=== PATIENT | male | born 1975 | race American Indian/Alaskan Native ===

== ENCOUNTER 2017-06-05 10:39 | Observation (INO) | payer BC ==
[2017-06-05 10:39] VITALS: BMI 28.3
--- NOTE | 2017-06-05 11:06 | ED PDOC ---
Arrival/HPI - History of Present Illness Time/Duration: < week Symptom Onset: Gradual Symptom Course: Worsening Context: Walking <Kimberli Valdivia - Last Filed: 06/05/17 16:47> <Arun Giang - Last Filed: 06/05/17 17:42> - General Chief Complaint: Chest Pain Time Seen by Provider: 06/05/17 10:51 - History of Present Illness Narrative History of Present Illness (Text): 06/05/17 11:02 41 year old male with past medical history of childhood asthma presents for chest pain present for 2 days. Pain began gradually, is intermittent and located on left side of his chest. Pain is worse with deep inspiration. Patient has not used anything for pain. C/o SOB worse with activity. Denies having any F/C, cough, REILLY, sick contacts, recent travels. Denies tobacco, drugs abuse and denies having any Fhx of CAD. (Kimberli Valdivia) Past Medical History - Provider Review Nursing Documentation Reviewed: Yes - Travel History Have you recently traveled outside [place] w/in the past 3 mons?: No - Infectious Disease Hx of Infectious Diseases: None - Psychiatric Hx Substance Use: No <Kimberli Valdivia - Last Filed: 06/05/17 16:47> Family/Social History - Physician Review Nursing Documentation Reviewed: Yes Family/Social History: No Known Family HX. denies: CAD/CO Smoking Status: Never Smoked Hx Alcohol Use: Yes Frequency of alcohol use: Socially Hx Substance Use: No <Kimberli Valdivia - Last Filed: 06/05/17 16:47> Allergies/Home Meds <Kimberli Valdivia - Last Filed: 06/05/17 16:47> <Arun Giang - Last Filed: 06/05/17 17:42> Allergies/Adverse Reactions: Allergies No Known Allergies Allergy (Verified 06/05/17 10:47) Home Medications: Home Meds Medication Instructions Recorded Confirmed No Known Home Med 06/05/17 06/05/17 Review of Systems - Review of Systems Constitutional: Normal. absent: Fatigue, Fevers Eyes: Normal. absent: Vision Changes ENT: Normal. absent: Sore Throat, Rhinorrhea Respiratory: SOB. absent: Normal, Cough, Wheezing Cardiovascular: Chest Pain. absent: Normal, Palpitations, Edema, Calf Pain Gastrointestinal: absent: Abdominal Pain, Constipation, Diarrhea, Nausea, Vomiting Genitourinary Male: Normal. absent: Dysuria, Frequency Musculoskeletal: Back Pain Skin: absent: Rash, Pruritis, Skin Lesions Neurological: Normal. absent: Headache, Dizziness Endocrine: Normal. absent: Diaphoresis Hemo/Lymphatic: Normal. absent: Adenopathy, Easy Bleeding Psychiatric: Normal. absent: Anxiety, Depression <Amn Skipa - Last Filed: 06/05/17 16:47> Physical Exam Vital Signs Reviewed: Yes Temperature: Afebrile Blood Pressure: Normal Pulse: Regular Respiratory Rate: Normal Appearance: Positive for: Well-Appearing, Non-Toxic, Comfortable Pain Distress: Mild Mental Status: Positive for: Alert and Oriented X 3 - Systems Exam Head: Present: Atraumatic, Normocephalic Extroacular Muscles: Present: EOMI Mouth: Present: Moist Mucous Membranes Respiratory/Chest: Present: Clear to Auscultation, Good Air Exchange. No: Respiratory Distress, Accessory Muscle Use, Wheezes, Rales, Rhonchi Cardiovascular: Present: Regular Rate and Rhythm, Normal S1, S2, Other (left sided chest tenderness ). No: Murmurs, Rub, Gallop, Muffled Abdomen: Present: Normal Bowel Sounds. No: Tenderness, Distention, Peritoneal Signs, Rebound, Guarding, Scars Lower Extremity: Present: Normal Inspection, NORMAL PULSES. No: Edema, CALF TENDERNESS Neurological: Present: GCS=15, Speech Normal Skin: Present: Warm, Dry, Normal Color. No: Rashes Psychiatric: Present: Alert, Oriented x 3, Normal Insight, Normal Concentration <Amn Skipa - Last Filed: 06/05/17 16:47> Medical Decision Making - Lab Interpretations I have reviewed the lab results: Yes Interpretation: All labs normal - RAD Interpretation Policy Adviser: ED Physician - EKG Interpretation Interpreted by ED Physician: Yes Type: 12 lead EKG <Kimberli Valdivia - Last Filed: 06/05/17 16:47> - Lab Interpretations I have reviewed the lab results: Yes Interpretation: All labs normal - RAD Interpretation Policy Adviser: ED Physician <Arun Giang - Last Filed: 06/05/17 17:42> ED Course and Treatment: 06/05/17 11:10 41 year old male presents for chest pain. Patient has low RAQUEL score of 0 with 5 % chance of cardiac events in next 14 days. Well's criteria is 0 which means 1.3& chance of PE. Will check CBC, CMP, cardiac iso, EKG, CXR 06/05/17 13:30 Blood work and CXR are unremarkable 06/05/17 15:00 Repeat troponin is negative. Repeat EKG showed no changes from previous. There was early depolarization note din V2-V4 which Dr. Giang discussed with Dr. Kimball, the materials inspector. Per Dr. Kimball, early repolarization. (Kimberli Valdivia) 06/05/17 12:31 41 yo male with chest pain that occurred that next day after working out at the gym. Located to left chest wall. Chest well: left chest wall tenderness. No ecchymosis. No swelling. No step off. Will check troponin and ekg and repeat in 3 hours. (Arun Giang) - Lab Interpretations Narrative Lab Interpretation (Text): 06/05/17 15:00 troponin x 2 negative. CPK is slightly elevated due to recent strenuous exercise. (Kimberli Valdivia) Lab Results: 06/05/17 11:00 06/05/17 11:00 Lab Results 06/05/17 11:00: Sodium 140, Potassium 4.5, Chloride 102, Carbon Dioxide 26, Anion Gap 17, BUN 12, Creatinine 0.9, Est GFR ( Amer) > 60, Est GFR (Non- Af Amer) > 60, Random Glucose 87, Calcium 9.6, Total Bilirubin 1.0, AST 38, ALT 47, Alkaline Phosphatase 91, Lactate Dehydrogenase 464, Total Creatine Kinase 266 H, CK-MB (CK-2) 1.6, CK-MB (CK-2) % Cancelled, Troponin I < 0.01, Total Protein 7.8, Albumin 4.7, Globulin 3.0, Albumin/Globulin Ratio 1.6 06/05/17 11:00: WBC 4.7, RBC 5.44, Hgb 14.8, Hct 44.6, MCV 82.0, MCH 27.2, MCHC 33.2, RDW 12.9, Plt Count 200, MPV 10.7 - RAD Interpretation Narrative RAD Interpretations (Text): 06/05/17 13:30 negative CXR (Kimberli Valdivia) Radiology Orders: 06/05/17 11:02 CXR (PA/LAT) [CHEST TWO VIEWS (PA/LAT)] [RAD] Stat CXR negative. (Arun Giang) - EKG Interpretation EKG Interpretation (Text): 06/05/17 11:14 NSR HR of 82. Rapid repolarization noted n V2 & V3. Normal axis and normal intervals 06/05/17 15:22 Repeat EKG showed early repolarization in V2-V4. This was confirmed by sending picture of EKG to Dr. Kimball who confirmed it as repolarization. NSR with HR of 65. Normal [place] and normal intervals. No significant change from previous EKG (Kimberli Valdivia) - Medication Orders Current Medication Orders: Discontinued Medications Ketorolac Tromethamine (Toradol) 30 mg IVP STAT STA Stop: 06/05/17 11:11 Last Admin: 06/05/17 11:18 Dose: 30 mg RAQUEL Risk Score for UA/NSTEMI - RAQUEL Risk Score Age > 64: NO 3 or more CAD Risk Factors: NO Known CAD (Stenosis greater than 50%): NO Aspirin use in past 7 days: NO Severe Angina: NO EKG ST changes greater than 0.5mm: NO RAQUEL Score: 0 % risk at 14 days of: all cause mortality, new or recurrent CO, or severe recurrent ischemia requiring urgen revascularization: 5% <Kimberli Valdivia - Last Filed: 06/05/17 16:47> Wells Criteria for PE - Wells Criteria for Pulmonary Embolism Clinical Signs and Symptoms of DVT: No P.E is #1 Diagnosis, or Equally Likely: No Heart Rate >100: No Immobilization at least 3 days;Surgery previous 4 weeks: No Previous, objectively diagnosed PE or DVT: No Hemoptysis: No Malignancy w/treatment within 6 months, or palliative: No Total Score: 0 <Kimberli Valdivia - Last Filed: 06/05/17 16:47> ED OBSERVATION Discharge: Yes Date of observation admission: 06/05/17 Time of observation admission: 11:04 <Kimberli Valdivia - Last Filed: 06/05/17 16:47> <Arun Giang - Last Filed: 06/05/17 17:42> - Observation admission statement Patient is being placed in observation because:: chest pain and monitoring serial enzymes (Kimberli Valdivia) - Goals of Observation Goals of observation are:: to check cardiac enzymes (Kimberli Valdivia) - Progress Note Progress Note: 06/05/17 12:00 Improved chest pain. Initial troponin is negative 06/05/17 13:00 Improved chest pain. Resting comfortably 06/05/17 15:06 Repeat troponin is negative. (Kimberli Valdivia) 06/05/17 15:06 I reviewed EKG with Dr. Garibay who agrees they are early repolarization findings. Patient has troponin negative x 2. EKG unchanged. Patient's chest pain is most likley musskeletal. He will f/u with his pmd this week. Advised to return if symptoms worsen or any other concern. (Arun Giang) Disposition/Present on Arrival - Present on Arrival Any Indicators Present on Arrival: No History of DVT/PE: No History of Uncontrolled Diabetes: No Urinary Catheter: No History of Decub. Ulcer: No History Surgical Site Infection Following: None - Disposition Have Diagnosis and Disposition been Completed?: Yes Disposition Time: 15:02 Patient Plan: Discharge <Kimberli Valdivia - Last Filed: 06/05/17 16:47> <Arun Giang - Last Filed: 06/05/17 17:42> - Disposition Diagnosis: Costochondritis Disposition: HOME/ ROUTINE Condition: GOOD
[2017-06-05 11:19] LABS: HEMOGLOBIN 14.8 g/dL (14.0-18.0); MEAN CORPUSCULAR HEMOGLOBIN 27.2 pg (25.0-35.0); MEAN CORPUSCULAR HGB CONC 33.2 g/dl (31.0-37.0); MEAN PLATELET VOLUME 10.7 fl (7.0-11.0); RBC 5.44 10^6/uL (3.5-6.1); RED CELL DISTRIBUTION WIDTH 12.9 % (11.5-14.5); WHITE BLOOD COUNT 4.7 10^3/ul (4.5-11.0)
[2017-06-05 11:27] LABS: ALB/GLOB RATIO 1.6 (1.1-1.8); ALBUMIN 4.7 g/dL (3.0-4.8); ALT/SGPT 47 U/L (7-56); AST/SGOT 38 U/L (15-59); BLOOD UREA NITROGEN 12 mg/dL (7-21); CALCIUM 9.6 mg/dL (8.4-10.5); GFR AFRICAN-AMERICAN > 60; GFR NON-AFRICAN AMERICAN > 60
[2017-06-05 11:40] LABS: TROPONIN I < 0.01 ng/mL
[2017-06-05 11:42] LABS: CK-MB 1.6 ng/mL (0.0-3.6)
--- NOTE | 2017-06-05 12:26 | RAD ---
HISTORY: chest pain COMPARISON: No prior. TECHNIQUE: Chest PA and lateral FINDINGS: LUNGS: No active pulmonary disease. PLEURA: No significant pleural effusion identified. No pneumothorax apparent. CARDIOVASCULAR: Normal. OSSEOUS STRUCTURES: No significant abnormalities. VISUALIZED UPPER ABDOMEN: Normal. OTHER FINDINGS: None. IMPRESSION: No active disease.
[2017-06-05 14:58] LABS: TROPONIN I < 0.01 ng/mL
[2017-06-05 14:59] LABS: CK-MB 1.4 ng/mL (0.0-3.6)
[2017-06-05 15:44] VITALS: BP 134/95; PULSE 63; RESP 16; TEMP 97.4; O2SAT 100
--- NOTE | 2017-06-06 00:20 | CARD ---
APPROVED REPORT EKG Measurement Heart [id number] MI [id number] <Conclusion> Normal sinus rhythm RSR' or QR pattern in V1 suggests right ventricular conduction delay ST elevation, consider anterior injury or acute infarct ACUTE [place] Abnormal ECG
--- NOTE | 2017-06-06 00:52 | CARD ---
APPROVED REPORT EKG Measurement Heart [id number] CO [id number] <Conclusion> Normal sinus rhythm RSR' or QR pattern in V1 suggests right ventricular conduction delay ST elevation injury pattern vs early repolarization Abnormal ECG
== END 2017-06-05 15:30 | disposition home or self-care (01) ==
LOC: ED 10:39 → EROBSV 11:04
PROVIDERS: ADMIT Emergency Medicine; ATTEND Emergency Medicine
DX: M94.0 Chondrocostal junction syndrome [Tietze] (principal)
CPT/HCPCS: 71020; 80053; 82550; 82553; 83615; 84484; 85027; 93005; 96374; 99282; G0378; J1885

== ENCOUNTER 2017-06-08 07:24 | Emergency (ER) | payer BC, OTHER ==
[2017-06-08 07:24] VITALS: BMI 28.3
[2017-06-08 07:30] VITALS: RESP 18
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
[2017-06-08 10:03] VITALS: BP 144/90; PULSE 76; TEMP 98; O2SAT 100
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
== END 2017-06-08 10:12 | disposition home or self-care (01) ==
LOC: ED 07:24
DX: S16.1XXA Strain of muscle, fascia and tendon at neck level, initial encounter (principal); V49.49XA Driver injured in collision with other motor vehicles in traffic accident, initial encounter; Y92.414 Local residential or business street as the place of occurrence of the external cause
CPT/HCPCS: 70450; 71010; 72110; 72125; 96372; 99285; J1885

== ENCOUNTER 2018-05-26 21:17 | Inpatient (IN) | payer BC ==
[2018-05-26 21:52] VITALS: BMI 29.0
[2018-05-26] MEDS ORDERED: Sodium Chloride 0.9% 1,000 ML IV STA (22:22)
--- NOTE | 2018-05-26 22:41 | ED PDOC ---
Arrival/HPI - General Chief Complaint: High Blood Sugar Time Seen by Provider: 05/26/18 21:45 Historian: Patient - History of Present Illness Narrative History of Present Illness (Text): 05/26/18 22:36 42 year old male, whose past medical history includes knee surgery for a meniscus tear and back disc surgery 2 weeks ago, presents complaining of generalized weakness since then over the past couple days with increase weakness. Patient reports polyuria, polydipsia, and polyphagia, but denies any Patient denies any fevers, chills, chest pain, shortness of breath, abdominal pain, nausea, vomiting, diarrhea, back pain, neck pain, headache, dizziness, or any other complaint. PMD: Dr. Webber Time/Duration: Other (2 weeks) Symptom Onset: Gradual Symptom Course: Unchanged Activities at Onset: Light Context: Home Past Medical History - Provider Review Nursing Documentation Reviewed: Yes - Infectious Disease Hx of Infectious Diseases: None - Psychiatric Hx Substance Use: No - Surgical History Hx Orthopedic Surgery: Yes (MCL repair 05/22) - Anesthesia Hx Anesthesia: Yes Hx Anesthesia Reactions: No Family/Social History - Physician Review Nursing Documentation Reviewed: Yes Family/Social History: No Known Family HX Smoking Status: Never Smoked Hx Alcohol Use: Yes Frequency of alcohol use: Socially Hx Substance Use: No Allergies/Home Meds Allergies/Adverse Reactions: Allergies No Known Allergies Allergy (Verified 06/08/17 07:28) Review of Systems - Physician Review All systems were reviewed & negative as marked: Yes - Review of Systems Constitutional: absent: Fevers, Other (Chills) Respiratory: absent: SOB Cardiovascular: absent: Chest Pain Gastrointestinal: Other (polyphagia). absent: Abdominal Pain, Diarrhea, Nausea , Vomiting Musculoskeletal: absent: Back Pain, Neck Pain Neurological: absent: Headache, Dizziness Endocrine: Polyuria, Polydipsia Physical Exam Vital Signs Reviewed: Yes Vital Signs Temp Pulse Resp BP Pulse Ox 05/26/18 21:56 98.2 F 119 H 18 139/103 H 96 Temperature: Afebrile Blood Pressure: Hypertensive Pulse: Tachycardic Respiratory Rate: Normal Appearance: Positive for: Well-Appearing, Non-Toxic, Comfortable Pain Distress: None Mental Status: Positive for: Alert and Oriented X 3 - Systems Exam Head: Present: Atraumatic, Normocephalic Pupils: Present: PERRL Extroacular Muscles: Present: EOMI Conjunctiva: Present: Normal Mouth: Present: Dry (Slight), Other (Fruity Odor to Breath) Neck: Present: Normal Range of Motion Respiratory/Chest: Present: Clear to Auscultation, Good Air Exchange. No: Respiratory Distress, Accessory Muscle Use Cardiovascular: Present: Regular Rate and Rhythm, Normal S1, S2. No: Murmurs Abdomen: No: Tenderness, Distention, Peritoneal Signs Back: Present: Normal Inspection Upper Extremity: Present: Normal Inspection. No: Cyanosis, Edema Lower Extremity: Present: Normal Inspection. No: Edema Neurological: Present: GCS=15, CN II-XII Intact, Speech Normal Skin: Present: Warm, Dry, Normal Color. No: Rashes Psychiatric: Present: Alert, Oriented x 3, Normal Insight, Normal Concentration Medical Decision Making ED Course and Treatment: 05/26/18 22:20 Impression: 42 year old male presents complaining of generalized weakness since his surgery 2 weeks ago. Patient reports polyuria, polydipsia, and polyphagia Plan: -- VBG -- EKG -- Labs -- CXR -- Glucose, IV Fluids, -- Urinalysis -- Reassess and disposition Prior Visits: Notes and results from previous visits were reviewed. Progress Notes: 05/27/18 01:35 CXR Impression: As read by me, no acute process. 05/27/18 01:38 Case discussed with Client Operations Manager and Dr. Levi who is aware and agrees with the plan. Accepts patient into hospitalist service. 05/27/18 01:49 EKG shows NSR at 96 BPM with early repolarization. No acute changes. Interpreted by me. - Lab Interpretations Lab Results: 05/26/18 22:41 05/26/18 22:41 Lab Results 05/27/18 01:17: POC Glucose (mg/dL) 415 H* 05/26/18 23:39: pO2 47, VBG pH 7.29 L, VBG pCO2 37.0 L, VBG HCO3 17.8 L, VBG Total CO2 18.9 L, VBG O2 Sat (Calc) 86.4 H, VBG Base Excess -8.1 L, VBG Potassium 4.9, Glucose 558 H*, Lactate 1.7, FiO2 21.0, Sodium 136.0, Chloride 98.0, Venous Blood Potassium 4.9 05/26/18 22:54: POC Glucose (mg/dL) 368 H 05/26/18 22:48: Urine Color Straw, Urine Appearance Clear, Urine pH 6.0, Ur Specific [place] 1.010, Urine Protein Negative, Urine Glucose (UA) >=1000, Urine Ketones 40 H, Urine Blood Negative, Urine Nitrate Negative, Urine Bilirubin Negative, Urine Urobilinogen 0.2, Ur Leukocyte Esterase Negative 05/26/18 22:41: WBC 10.4 D, RBC 5.75, Hgb 15.8, Hct 45.9, MCV 79.8 L, MCH 27.5 , MCHC 34.4, RDW 12.5, Plt Count 232, MPV 12.0 H 05/26/18 22:41: Sodium 134, Potassium 4.7, Chloride 94 L, Carbon Dioxide 17 L, Anion Gap 28 H, BUN 23 H, Creatinine 1.2, Est GFR ( Amer) > 60, Est GFR ( Non-Af Amer) > 60, Random Glucose 644 H* D, Calcium 9.5, Total Bilirubin 1.5 H, AST 15 L, ALT 48, Alkaline Phosphatase 143 H, Total Protein 8.2, Albumin 4.8, Globulin 3.4, Albumin/Globulin Ratio 1.4 05/26/18 21:51: POC Glucose (mg/dL) > 500 H* I have reviewed the lab results: Yes - RAD Interpretation Radiology Orders: 05/26/18 22:21 CHEST PORTABLE [RAD] Stat - EKG Interpretation Interpreted by ED Physician: Yes Type: 12 lead EKG - Medication Orders Current Medication Orders: Insulin Human Regular 100 (units/ Sodium Chloride) 100 mls @ 5 mls/hr IV .Q20H PRN; Protocol; 5 UNITS/HR PRN Reason: TITRATE PER MD ORDER Last Admin: 05/27/18 01:30 Dose: 5 mls/hr eMAR Start Stop Document 05/27/18 01:30 RG (Rec: 05/27/18 01:32 RG [id number]) Intravenous Solution Start Date 05/27/18 Start Time 01:32 MAR Blood Glucose Document 05/27/18 01:30 RG (Rec: 05/27/18 01:32 RG [id number]) Blood Glucose Finger Stick Blood Glucose (70-120) 478 Discontinued Medications Sodium Chloride (Sodium Chloride 0.9%) 1,000 mls @ 999 mls/hr IV .Q1H1M STA Stop: 05/26/18 23:22 Last Admin: 05/26/18 22:56 Dose: 999 mls/hr eMAR Start Stop Document 05/26/18 22:56 RG (Rec: 05/26/18 22:56 RG [id number]) Intravenous Solution Start Date 05/26/18 Start Time 22:56 - Scribe Statement The provider has reviewed the documentation as recorded by the Maddie Barahona Provider Scribe Attestation: All medical record entries made by the Scribe were at my direction and personally dictated by me. I have reviewed the chart and agree that the record accurately reflects my personal performance of the history, physical exam, medical decision making, and the department course for this patient. I have also personally directed, reviewed, and agree with the discharge instructions and disposition. Disposition/Present on Arrival - Present on Arrival Any Indicators Present on Arrival: No History of DVT/PE: No History of Uncontrolled Diabetes: No Urinary Catheter: No History of Decub. Ulcer: No History Surgical Site Infection Following: None - Disposition Have Diagnosis and Disposition been Completed?: Yes Diagnosis: DKA (diabetic ketoacidoses), New onset type 1 diabetes mellitus, uncontrolled Disposition: HOSPITALIZED Disposition Time: 02:20 Patient Plan: Admission Condition: STABLE Referrals: Benton Webber MD [Primary Care Provider] - Follow up with primary Forms: InSupply (Swedish)
[2018-05-26 23:11] LABS: ALB/GLOB RATIO 1.4 (1.1-1.8); ALBUMIN 4.8 g/dL (3.0-4.8); ALT/SGPT 48 U/L (7-56); AST/SGOT 15 U/L (17-59); BLOOD UREA NITROGEN 23 mg/dL (7-21); CALCIUM 9.5 mg/dL (8.4-10.5); GFR AFRICAN-AMERICAN > 60; GFR NON-AFRICAN AMERICAN > 60
[2018-05-26 23:19] LABS: URINE BILIRUBIN NEGATIVE (NEGATIVE); URINE BLOOD NEGATIVE (NEGATIVE); URINE GLUCOSE (UA) >=1000 mg/dL (NEGATIVE); URINE LEUKOCYTE ESTERASE NEGATIVE Leu/uL (NEGATIVE); URINE PROTEIN NEGATIVE mg/dL (<30 mg/dL); URINE UROBILINOGEN 0.2 E.U./dL (<1 E.U./dL)
[2018-05-26 23:21] LABS: HEMOGLOBIN 15.8 g/dL (14.0-18.0); MEAN CELL VOLUME 79.8 fl (80.0-105.0); MEAN CORPUSCULAR HEMOGLOBIN 27.5 pg (25.0-35.0); MEAN CORPUSCULAR HGB CONC 34.4 g/dl (31.0-37.0); RBC 5.75 10^6/uL (3.5-6.1); RED CELL DISTRIBUTION WIDTH 12.5 % (11.5-14.5); WHITE BLOOD COUNT 10.4 10^3/ul (4.5-11.0)
[2018-05-26 23:22] LABS: URINE APPEARANCE CLEAR (CLEAR); URINE COLOR STRAW (YELLOW)
[2018-05-26 23:51] LABS: VENOUS BLOOD GAS BASE EXCESS -8.1 mmol/L (0.0-2.0); VENOUS BLOOD GAS PO2 47 mm/Hg (30-55); VENOUS BLOOD PH 7.29 (7.32-7.43)
[2018-05-27] MEDS ORDERED: Insulin Regular 100 UNITS in Sodium Chloride 0.9% 99 ML IV PRN (01:01)
[2018-05-27] MEDS ORDERED: Insulin Human NPH/Reg 70/30 Vial(3 ml) SC STA (02:55)
[2018-05-27] MEDS ORDERED: Dextrose 50% SYRINGE Inj (50 ml) IV PRN (02:59)
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
[2018-05-27] MEDS: Sodium Chloride 0.9% 1,000 ML IV SCH ×2 (03:19→11:55)
[2018-05-27 04:03] LABS: VENOUS BLOOD GAS BASE EXCESS -5.8 mmol/L (0.0-2.0); VENOUS BLOOD GAS PO2 46 mm/Hg (30-55); VENOUS BLOOD PH 7.33 (7.32-7.43)
[2018-05-27 07:00] LABS: BASO # 0.01 K/mm3 (0.0-2.0); BASO % 0.1 % (0.0-3.0); EOS # 0.1 (0.0-0.7); EOS % 0.9 % (1.5-5.0); GRAN # 5.27 (1.4-6.5); GRAN % 62.4 % (50.0-68.0); HEMOGLOBIN 15.2 g/dL (14.0-18.0); LYMPH # 2.2 (1.2-3.4); LYMPH % 26.2 % (22.0-35.0); MEAN CELL VOLUME 78.6 fl (80.0-105.0); MEAN CORPUSCULAR HEMOGLOBIN 28.5 pg (25.0-35.0); MEAN CORPUSCULAR HGB CONC 36.3 g/dl (31.0-37.0); MEAN PLATELET VOLUME 11.3 fl (7.0-11.0); MONO # 0.9 (0.1-0.6); MONO % 10.4 % (1.0-6.0); RBC 5.33 10^6/uL (3.5-6.1); RED CELL DISTRIBUTION WIDTH 12.6 % (11.5-14.5); WHITE BLOOD COUNT 8.5 10^3/ul (4.5-11.0)
[2018-05-27 07:30] LABS: ALB/GLOB RATIO 1.4 (1.1-1.8); ALBUMIN 4.2 g/dL (3.0-4.8); ALT/SGPT 40 U/L (7-56); AST/SGOT 16 U/L (17-59); BLOOD UREA NITROGEN 17 mg/dL (7-21); CALCIUM 8.9 mg/dL (8.4-10.5); GFR AFRICAN-AMERICAN > 60; GFR NON-AFRICAN AMERICAN > 60
[2018-05-27] MEDS ORDERED: Insulin Regular 1 UNITS/0.01 ML ML SC SCH (07:30)
[2018-05-27 07:35] LABS: TROPONIN I 0.02 ng/mL
[2018-05-27] MEDS ORDERED: Insulin Regular 1 UNITS/0.01 ML ML SC ONE (07:54)
--- NOTE | 2018-05-27 08:12 | RAD ---
Date of service: 05/26/2018 HISTORY: weak COMPARISON: 04/29/2018 FINDINGS: LUNGS: No active pulmonary disease. PLEURA: No significant pleural effusion identified, no pneumothorax apparent. CARDIOVASCULAR: Normal. OSSEOUS STRUCTURES: No significant abnormalities. VISUALIZED UPPER ABDOMEN: Normal. OTHER FINDINGS: None. IMPRESSION: No active disease.
[2018-05-27 08:15] LABS: BLOOD UREA NITROGEN 17 mg/dL (7-21); CALCIUM 9.1 mg/dL (8.4-10.5); GFR AFRICAN-AMERICAN > 60; GFR NON-AFRICAN AMERICAN > 60
[2018-05-27] MEDS ORDERED: Sodium Chloride 0.9% 1,000 ML IV SCH (09:00)
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
--- NOTE | 2018-05-27 09:46 | CARD ---
APPROVED REPORT Date of service: 05/27/2018 EKG Measurement Heart [id number] <Conclusion> Normal sinus rhythm Possible Left atrial enlargement ST elevation, probably due to early repolarization Borderline ECG
[2018-05-27 11:21] LABS: BLOOD UREA NITROGEN 15 mg/dL (7-21); CALCIUM 8.8 mg/dL (8.4-10.5); GFR AFRICAN-AMERICAN > 60; GFR NON-AFRICAN AMERICAN > 60
[2018-05-27] MEDS: Insulin Lispro (humaLOG) LOW Coverage SC SCH ×3 (11:55→22:03)
[2018-05-27] MEDS: Insulin Lispro 1 UNITS/0.01 ML SC SCH ×2 (12:33→17:20)
[2018-05-27] MEDS ORDERED: Pneumococcal 23-Valent Vaccine IM ONE (14:21)
[2018-05-27] MEDS ORDERED: Insulin Detemir 100 units/ml Vial (Levemir) SC SCH ×2 (22:00)
[2018-05-28 06:45] LABS: ALB/GLOB RATIO 1.3 (1.1-1.8); ALBUMIN 3.7 g/dL (3.0-4.8); ALT/SGPT 33 U/L (7-56); AST/SGOT 15 U/L (17-59); BLOOD UREA NITROGEN 11 mg/dL (7-21); CALCIUM 8.5 mg/dL (8.4-10.5); GFR AFRICAN-AMERICAN > 60; GFR NON-AFRICAN AMERICAN > 60; HDL CHOLESTEROL 40 mg/dL (29-60)
[2018-05-28 06:52] LABS: LDL CHOLESTEROL 130 mg/dL (0-129)
[2018-05-28] MEDS ORDERED: Potassium Chloride 20 mEq ER Tab PO ONE ×2 (07:06→11:00)
[2018-05-28] MEDS ORDERED: Magnesium 2 gm/50 ml NS 2 GM/50 ML BAG IVPB ONE (07:12)
[2018-05-28] MEDS: Insulin Lispro (humaLOG) LOW Coverage SC SCH ×4 (08:00→22:13)
[2018-05-28] MEDS: Insulin Lispro 1 UNITS/0.01 ML SC SCH ×3 (08:06→17:19)
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
--- NOTE | 2018-05-28 09:01 | CON ---
Copied To: Christy Garzon MD Attending MD: Christy Garzon MD. ADDENDUM DATE: 05/27/2018 LOCATION: In room 260. HISTORY OF PRESENT ILLNESS: This an addendum to the endocrine consult already made by the certified medical transcriptionist. This is a 42-year-old male with recent arthroscopy and lower back cortisone injections, who presents here with progressively worsening polyuria, nocturia, polydipsia and generalized body weakness and has been evaluated to have recent or new onset of uncontrolled type 1 insulin-dependent diabetes with mild diabetic ketoacidosis and dehydration and is being referred now for diabetic evaluation and management. PAST MEDICAL HISTORY: Essentially unremarkable. No medical history noted or intake of any medications at this time. FAMILY HISTORY: No known diabetic condition, although he has a daughter diagnosed of type 1 insulin-dependent diabetes, on an insulin pump as noted. SOCIAL HISTORY: The patient has supportive family. No known substance use. REVIEW OF SYSTEMS: As mentioned above, admits to generalized body weakness with easy fatigability and tiredness and suboptimal energy level with worsening visual blurring and bifrontal headaches and supervening dizziness and lightheadedness, especially in the last 2-3 days prior to admission. No chest pains or palpitations or PND. His oral intake has been variable with nausea, dyspepsia and vague upper abdominal pains. Also admits to marked polyuria and nocturia as noted. PHYSICAL EXAMINATION: General: This is an average built male, in no apparent distress with a blood pressure of 140/80; pulse of 70 beats per minute, regular; temperature 98; respirations 20; height is 6 feet 1 inches, weight is 220 pounds. HEENT: Head normocephalic. Eyes anicteric with pink conjunctivae. Funduscopy not possible at this time. Ears, nose and throat otherwise normal. NECK: Supple. Thyroid gland is normal in size. No carotid bruits or any cervical adenopathy. CARDIOPULMONARY: Some adynamic precordium. S1, S2 is rapid and regular. LUNGS: Clear to auscultation. ABDOMEN: Flat, soft with positive bowel sounds. EXTREMITIES: No peripheral edema. Pulses are +2 bilaterally. LABORATORY DATA: His initial chemistries showed a BUN of 23, sodium 134, potassium 4.7, chloride 94, CO2 of 17, glucose 644 and creatinine 1.2. His hemoglobin A1c is 10.4%. ASSESSMENT: This is a 42-year-old male with uncontrolled and decompensated type 1 insulin-dependent diabetes of fairly recent onset and presenting here with early diabetic ketoacidosis and dehydration with prerenal azotemia and spurious hyponatremia from the increased osmotic diuresis thereof. PLAN OF MANAGEMENT: As discussed with the patient and the staff, we will start him right away on A more physiologic basal and bolus insulin drug combination with Levemir given as 30 units subcu at bedtime daily to start tonight. We will add Humalog to cover his meal time insulin requirements at a dose of 12 units subcu t.i.d. before meals as ordered. We will modify the coverage scale to obviate hypoglycemia and detailed orders have been given. We will obtain serial chemistries and supplement accordingly as needed. We will continue the vigorous IV hydration to replenish the lost fluids and electrolytes accordingly and obtain serial chemistries and supplement as indicated. We will initiate diet education and dietary instructions at the time of this admission. We will follow. Christy Garzon MD
--- NOTE | 2018-05-28 11:47 | US ---
PROCEDURE: Right lower extremity venous US HISTORY: Leg pain and swelling. Evaluate for DVT. PHYSICIAN(S): Lauri Arzola M.D. TECHNIQUE: Duplex sonography and color-flow Doppler with graded compression were used to evaluate the deep venous system of the right lower extremity. FINDINGS: The visualized deep venous system of the right lower extremity is sonographically normal and compressible. Normal waveforms and augmentation are seen. There is no sonographic evidence for deep venous thrombosis in the visualized segments of the right lower extremity. IMPRESSION: 1. No sonographic evidence for deep venous thrombosis in the visualized segments of the right lower extremity.
[2018-05-28] MEDS ORDERED: Insulin Detemir 100 units/ml Vial (Levemir) SC SCH (11:58)
--- NOTE | 2018-05-28 12:35 | RAD ---
Date of service: 05/28/2018 PROCEDURE: Right Knee and patella Radiographs. HISTORY: increased swelling, pain COMPARISON: None. FINDINGS: BONES: A nondisplaced fracture line can be seen along the lateral aspect of the patella. It is possible that this represents a bipartite patella. Clinical correlation is suggested regarding site of acute pain. JOINTS: Normal. No osteoarthritis. JOINT EFFUSION: Small effusion OTHER FINDINGS: None. IMPRESSION: A nondisplaced fracture line can be seen along the lateral aspect of the patella. It is possible that this represents a bipartite patella. Clinical correlation is suggested regarding site of acute pain.
[2018-05-28] MEDS ORDERED: Potassium & Sodium Phosphate PO ONE (14:29)
[2018-05-28 17:51] VITALS: O2SAT 99
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
--- NOTE | 2018-05-28 20:43 | PN ---
Copied To: Christy Garzon MD Attending MD: Christy Garzon MD DATE: 05/28/2018 ENDO FOLLOWUP NOTE LOCATION: In room 260. SUBJECTIVE: This is a 42-year-old male with recent diagnosis of uncontrolled type 1 insulin-dependent diabetes, presenting here with dehydration and prerenal azotemia with spurious hyponatremia with concomitant marked hyperglycemic accelerations and early diabetic ketoacidosis and has received vigorous IV hydration and intensive insulin therapy as given. His glucose values are fluctuating, but improved as noted today and the values have ranged from 205 to 225 mg/dL. It was 243 at bedtime last night. The chemistry showed a BUN of 11, sodium 137, potassium of 3.3, chloride 102, CO2 of 24, glucose 212 and creatinine 0.7. ASSESSMENT AND PLAN: We would good expect mild hypokalemia after vigorous IV hydration and intensive insulin therapy as given. We would also expect dyslipidemia with the underlying uncontrolled diabetic condition as recently diagnosed. We will modify the current basal and bolus insulin regimen and increase the Humalog to 14 units subcu t.i.d. to start at dinner time today as ordered. They have increased his basal insulin with Levemir to be given as 25 units subcu at bedtime daily to start tonight. We will continue the low-dose correction scale using Humalog insulin as given. The diabetic nurse educator showed the patient today insulin self-administration using the insulin pen and also glucose monitoring as noted. We will obtain serial chemistries and supplement accordingly as needed. The implications of this the recent diagnosis of type 1 diabetes has been discussed with the and the patient at bedside and the patient is very hopeful that he can eventually go off insulin in the future. Reassured the patient and his that only is really time can tell whether his pancreas will eventually improve with resumption of the endogenous pancreatic reserve and be able to go off insulin and/or remain on insulin therapy if he truly is a type 1 diabetic. The C-peptide and SHADIA antibodies have been sent out to a reference lab. We will obtain serial chemistries and supplement accordingly as needed. We will continue also the IV hydration as given. We will follow. Christy Garzon MD [facility] # [id number]
[2018-05-29 06:27] LABS: BASO # 0.01 K/mm3 (0.0-2.0); BASO % 0.2 % (0.0-3.0); EOS # 0.1 (0.0-0.7); EOS % 1.1 % (1.5-5.0); GRAN # 2.45 (1.4-6.5); GRAN % 52.7 % (50.0-68.0); HEMOGLOBIN 13.5 g/dL (14.0-18.0); LYMPH # 1.5 (1.2-3.4); LYMPH % 31.8 % (22.0-35.0); MEAN CORPUSCULAR HEMOGLOBIN 26.7 pg (25.0-35.0); MEAN CORPUSCULAR HGB CONC 34.3 g/dl (31.0-37.0); MEAN PLATELET VOLUME 11.9 fl (7.0-11.0); MONO # 0.7 (0.1-0.6); MONO % 14.2 % (1.0-6.0); RBC 5.05 10^6/uL (3.5-6.1); RED CELL DISTRIBUTION WIDTH 12.4 % (11.5-14.5); WHITE BLOOD COUNT 4.7 10^3/ul (4.5-11.0)
[2018-05-29 06:43] LABS: BLOOD UREA NITROGEN 14 mg/dL (7-21); CALCIUM 8.9 mg/dL (8.4-10.5); GFR AFRICAN-AMERICAN > 60; GFR NON-AFRICAN AMERICAN > 60
[2018-05-29] MEDS ORDERED: Potassium Chloride 20 mEq ER Tab PO ONE (07:52)
[2018-05-29 09:04] VITALS: BP 106/67; PULSE 85; RESP 18; TEMP 98.2
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
[2018-05-29] MEDS: Insulin Lispro 1 UNITS/0.01 ML SC SCH ×2 (09:45→11:45)
[2018-05-29] MEDS: Insulin Lispro (humaLOG) LOW Coverage SC SCH ×2 (09:45→11:45)
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
--- NOTE | 2018-05-29 10:42 | RAD ---
Date of service: 05/29/2018 PROCEDURE: Left Knee Radiographs. HISTORY: Pain. COMPARISON: None. FINDINGS: BONES: Normal. No fracture. JOINTS: Normal. No osteoarthritis. JOINT EFFUSION: None. OTHER FINDINGS: None. IMPRESSION: Normal radiographs of the left knee.
[2018-05-29 12:29] LABS: C-PEPTIDE 0.25 ng/mL (0.80-3.85)
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
--- NOTE | 2018-05-29 19:32 | PN ---
Copied To: Christy Garzon MD Attending MD: Christy Garzon MD DATE: 05/29/2018 ENDO FOLLOWUP NOTE LOCATION: In room 370. SUBJECTIVE: This is a 42-year-old male with recent uncontrolled type 1 insulin-dependent diabetes presenting here with diabetic ketoacidosis and dehydration and has since then improved clinically and metabolically as noted thereof. His glucose values are fluctuating, but improved and have ranged from 236 to 263 mg/dL. LABORATORY DATA: His latest chemistry showed a BUN of 14, sodium 137, potassium 3.5, chloride 102, CO2 25, glucose 264 and creatinine 0.8. ASSESSMENT AND PLAN: So at this time, we will continue the same basal and bolus insulin regimen as previously ordered to allow for dose equilibration and keep him on the Humalog given as 14 units subcu t.i.d. before meals as ordered. We will continue the basal insulin given as Levemir at 30 units subcu at bedtime daily as given. We will titrate incrementally as indicated to optimize metabolic control. We will obtain serial chemistries and supplement accordingly as needed. We will follow. Christy Garzon MD
--- NOTE | 2018-05-29 19:32 | CON ---
Copied To: Reid Fofana DO Attending MD: Reid Fofana DO DATE: 05/29/2018HISTORY OF PRESENT ILLNESS: A 42-year-old male, I was asked to see him for right knee pain, swelling and x-ray showed a questionable bipartite patella versus acute fracture. He is 2 weeks postop with right knee arthroscopy for outside orthopedic doctor. He has effusion of the knee. Mild lack of full extension because he like it to put a pillow under his knee, so I told him to put the pillow under his calf instead. The x-ray shows questionable bipartite patella versus a new fracture, but he has no history of a recent injury, so we will try to answer that question by getting a CAT scan of the right patella, skyline view in comparison to the left knee, but when I touched the knee, I could feel a fine line on the lateral portion of the patella. It could be a bipartite patella, could be an incidental fracture from unknown trauma. I am going to get a CAT scan to evaluate for a bipartite patella. I told him not to sleep with a pillow under his knee. I will start therapy for ambulation with a cane. Weightbearing to tolerance and to wear a brace if needed, which I supplied him with. FINAL DIAGNOSIS: Effusion of the right knee, 2 weeks postoperative and either a bipartite patella or acute fracture of the right patella superolateral portion. I will report back after we get further x-rays. Reid Fofana DO MTDRobbie
[2018-05-29] MEDS ORDERED: Insulin Detemir 100 units/ml Vial (Levemir) SC SCH (22:00)
== END 2018-05-29 15:43 | disposition home or self-care (01) | DRG 638 ==
LOC: ED 21:17 → ERH 05-27 02:17 → 2RNO 05-27 07:19 → 3RSO 05-28 12:39
PROVIDERS: ADMIT Hospitalist; ATTEND Internal Medicine
DX: E10.10 Type 1 diabetes mellitus with ketoacidosis without coma (principal); E87.1 Hypo-osmolality and hyponatremia; E86.0 Dehydration; E78.5 Hyperlipidemia, unspecified; M25.461 Effusion, right knee; E87.6 Hypokalemia